=== PATIENT | female | born 1960 | race Caucasian/White ===

== ENCOUNTER → 2022-07-14 10:46 | Outpatient (BNVA) | payer BC, SELFPAY | PROVIDERS: PCP Family Medicine; Visit Provider Internal Medicine Rheumatology | DX: Z79.899 Other long term (current) drug therapy (principal); M19.90 Unspecified osteoarthritis, unspecified site; Z11.59 Encounter for screening for other viral diseases | CPT/HCPCS: 36415; 72100; 72202; 73130; 73630; 80076; 82565; 85025; 85651; 86140; 86480; 86704; 86803; 87340 ==

== ENCOUNTER 2022-12-11 16:02 | Outpatient (CLI) | payer BC, SELFPAY ==
[2022-12-11 17:30] LABS: Basophils % 0.6 %; Eosinophils # 0.1 10^3/uL (0.0-0.8); Eosinophils % 0.9 %; Hematocrit 37.4 % (36-47); Lymphocytes # 1.3 10^3/uL (0.8-4.8); Lymphocytes % 19.6 %; Mean Corpuscular HGB Conc 31.8 g/dL (30-55); Mean Corpuscular Hemoglobin 29.6 pg (27-33); Mean Platelet Volume 11.3 fL (7.4-10.4); Monocytes # 0.3 10^3/uL (0.2-0.9); Monocytes % 4.4 %; Neutrophils # 5.02 10^3/uL (1.8-7.7); Neutrophils % 74.2 %; Nucleated Red Blood Cells % 0 %; Platelet Count 187 10^3/cmm (157-399); Red Blood Count 4.02 10^6/uL (3.85-5.65); Red Cell Distribution Width 16.3 % (12.1-15.1); White Blood Count 6.77 10^3/uL (3.29-11.43)
[2022-12-11 17:42] LABS: Alanine Aminotransferase 211 U/L (0-33); Albumin Level 4.1 g/dL (3.5-5.2); Alkaline Phosphatase 258 U/L (35-105); Aspartate Amino Transferase 289 U/L (0-32); C Reactive Protein 4.7 mg/L (0.0-4.9); Globulin 2.7 g/dL (1.3-4.6); Total Bilirubin 0.3 mg/dL (0.15-1.2); Total Protein 6.8 g/dL (6.6-8.7)
== END 2022-12-11 16:03 | disposition home or self-care (01) ==
PROVIDERS: PCP Family Medicine; Visit Provider Internal Medicine Rheumatology
DX: M54.89 Other dorsalgia (principal); Z79.899 Other long term (current) drug therapy
CPT/HCPCS: 36415; 80076; 82565; 85025; 86140

== ENCOUNTER → 2022-12-17 12:39 | Outpatient (BNVA) | payer BC, SELFPAY | PROVIDERS: PCP Family Medicine; Visit Provider Internal Medicine Rheumatology | DX: Z79.899 Other long term (current) drug therapy (principal); M19.90 Unspecified osteoarthritis, unspecified site; M35.00 Sjogren syndrome, unspecified; M54.89 Other dorsalgia; Z71.85 Encounter for immunization safety counseling; M47.816 Spondylosis without myelopathy or radiculopathy, lumbar region | CPT/HCPCS: 36415; 80076; 83520; 85651; 86140; 86200; 86431 ==

== ENCOUNTER 2023-01-14 12:22 | Outpatient (CLI) | payer BC, SELFPAY ==
[2023-01-14 13:15] LABS: Basophils % 0.3 %; Eosinophils % 0.1 %; Lymphocytes % 13.6 %; Mean Corpuscular HGB Conc 31.4 g/dL (30-55); Mean Corpuscular Hemoglobin 30.3 pg (27-33); Mean Corpuscular Volume 96.3 fl (85-98); Mean Platelet Volume 11.2 fL (7.4-10.4); Monocytes # 0.4 10^3/uL (0.2-0.9); Monocytes % 6.1 %; Neutrophils # 5.71 10^3/uL (1.8-7.7); Neutrophils % 79.3 %; Nucleated Red Blood Cells % 0 %; Platelet Count 162 10^3/cmm (157-399); Red Blood Count 4.36 10^6/uL (3.85-5.65); Red Cell Distribution Width 15.2 % (12.1-15.1)
[2023-01-14 13:36] LABS: Alanine Aminotransferase 91 U/L (0-33); Albumin Level 4.3 g/dL (3.5-5.2); Alkaline Phosphatase 168 U/L (35-105); Aspartate Amino Transferase 26 U/L (0-32); C Reactive Protein 6.3 mg/L (0.0-4.9); Globulin 2.6 g/dL (1.3-4.6); Glomerular Filtration Rate 73.2 mL/min (90-130); Total Bilirubin 0.3 mg/dL (0.15-1.2); Total Protein 6.9 g/dL (6.6-8.7)
== END 2023-01-14 12:23 | disposition home or self-care (01) ==
PROVIDERS: PCP Family Medicine; Visit Provider Internal Medicine Rheumatology
DX: M19.90 Unspecified osteoarthritis, unspecified site (principal); M35.00 Sjogren syndrome, unspecified; Z79.899 Other long term (current) drug therapy
CPT/HCPCS: 80076; 82565; 85025; 86140

== ENCOUNTER 2023-01-28 07:32 | Outpatient (CLI) | payer BC, SELFPAY ==
--- NOTE | 2023-01-28 08:00 | US_ITS ---
WS: [id number] RIGHT UPPER QUADRANT ULTRASOUND HISTORY: R79.89 - Other specified abnormal findings of blood chemistry COMPARISON: None available. Liver: 14.2 cm in length. Liver is normal size but there is coarse echotexture throughout the liver. Liver is echogenic and poorly penetrated. No mass identified but the entire liver is not been well ev aluated. No bile duct dilatation. Portal Vein: Normal hepatopetal flow with monophasic waveform. Gallbladder: Prior cholecystectomy. CBD: 1.1 cm Pancreas: Completely obscured. Right kidney: 10.5 cm in length. Normal size and echogenicity. No hydronephrosis or mass. Aorta and IVC: Unremarkable abdominal aorta and IVC. No ascites. IMPRESSION: 1. Technically limited evaluation of the RIGHT upper quadrant. 2. Prior cholecystectomy. 3. Echogenic liver with poor penetration. Most consistent with hepatic fibrosis and steatosis. No mas s identified but the entire liver is not well visualized. 4. Common bile duct is mildly enlarged but this may be due to the postcholecystectomy state. No intra hepatic duct dilatation.
== END 2023-01-28 07:33 | disposition home or self-care (01) ==
PROVIDERS: PCP Family Medicine; Visit Provider Internal Medicine Rheumatology
DX: R79.89 Other specified abnormal findings of blood chemistry (principal); Z90.49 Acquired absence of other specified parts of digestive tract
CPT/HCPCS: 76705

== ENCOUNTER 2023-03-03 11:30 | Outpatient (CLI) | payer BC, SELFPAY ==
[2023-03-03 13:06] LABS: Alanine Aminotransferase 28 U/L (0-33); Alkaline Phosphatase 113 U/L (35-105); Aspartate Amino Transferase 25 U/L (0-32); Globulin 2.5 g/dL (1.3-4.6); Total Bilirubin 0.6 mg/dL (0.15-1.2); Total Protein 6.5 g/dL (6.6-8.7)
== END 2023-03-03 11:31 | disposition home or self-care (01) ==
LOC: LAB 11:31
PROVIDERS: PCP Family Medicine; Visit Provider Internal Medicine Rheumatology
DX: Z79.899 Other long term (current) drug therapy (principal); R79.89 Other specified abnormal findings of blood chemistry
CPT/HCPCS: 36415; 80076

== ENCOUNTER 2023-03-17 15:52 | Outpatient (CLI) | payer BC, SELFPAY ==
[2023-03-17 16:08] LABS: Basophils % 0.7 %; Eosinophils # 0.2 10^3/uL (0.0-0.8); Hematocrit 42.2 % (36-47); Lymphocytes % 37.1 %; Mean Corpuscular HGB Conc 31.8 g/dL (30-55); Mean Corpuscular Hemoglobin 30.1 pg (27-33); Mean Corpuscular Volume 94.8 fl (85-98); Mean Platelet Volume 10.9 fL (7.4-10.4); Monocytes # 0.6 10^3/uL (0.2-0.9); Monocytes % 11.4 %; Neutrophils # 2.53 10^3/uL (1.8-7.7); Neutrophils % 47.4 %; Nucleated Red Blood Cells % 0 %; Platelet Count 185 10^3/cmm (157-399); Red Blood Count 4.45 10^6/uL (3.85-5.65); Red Cell Distribution Width 13.2 % (12.1-15.1); White Blood Count 5.34 10^3/uL (3.29-11.43)
[2023-03-17 16:25] LABS: C Reactive Protein 5.6 mg/L (0.0-4.9); Glomerular Filtration Rate 73.2 mL/min (90-130)
== END 2023-03-17 15:53 | disposition home or self-care (01) ==
LOC: LAB 15:55
PROVIDERS: PCP Family Medicine; Visit Provider Internal Medicine Rheumatology
DX: Z79.899 Other long term (current) drug therapy (principal); M19.90 Unspecified osteoarthritis, unspecified site; M35.00 Sjogren syndrome, unspecified
CPT/HCPCS: 36415; 82565; 85025; 86140

== ENCOUNTER 2023-06-09 14:51 | Outpatient (CLI) | payer BC, SELFPAY ==
[2023-06-09 15:20] LABS: Basophils # 0.1 10^3/uL (0.0-0.1); Basophils % 0.8 %; Eosinophils % 0.3 %; Hematocrit 38.6 % (36-47); Lymphocytes # 1.4 10^3/uL (0.8-4.8); Lymphocytes % 22.9 %; Mean Corpuscular HGB Conc 32.1 g/dL (30-55); Mean Corpuscular Hemoglobin 29.2 pg (27-33); Mean Platelet Volume 11.8 fL (7.4-10.4); Monocytes # 0.3 10^3/uL (0.2-0.9); Monocytes % 4.5 %; Neutrophils # 4.29 10^3/uL (1.8-7.7); Neutrophils % 71.2 %; Nucleated Red Blood Cells % 0 %; Platelet Count 164 10^3/cmm (157-399); Red Blood Count 4.24 10^6/uL (3.85-5.65); Red Cell Distribution Width 13.8 % (12.1-15.1); White Blood Count 6.03 10^3/uL (3.29-11.43)
[2023-06-09 15:45] LABS: Alanine Aminotransferase 27 U/L (0-33); Alkaline Phosphatase 150 U/L (35-105); Aspartate Amino Transferase 30 U/L (0-32); C Reactive Protein 3.6 mg/L (0.0-4.9); Globulin 2.7 g/dL (1.3-4.6); Total Bilirubin 0.3 mg/dL (0.15-1.2); Total Protein 6.7 g/dL (6.6-8.7)
== END 2023-06-09 14:52 | disposition home or self-care (01) ==
LOC: LAB 14:55
PROVIDERS: PCP Family Medicine; Visit Provider Internal Medicine Rheumatology
DX: Z79.899 Other long term (current) drug therapy (principal); M54.89 Other dorsalgia; M19.90 Unspecified osteoarthritis, unspecified site
CPT/HCPCS: 36415; 80076; 82565; 85025; 86140

== ENCOUNTER 2023-11-22 15:57 | Outpatient (CLI) | payer BC, SELFPAY ==
[2023-11-22 16:23] LABS: Basophils # 0.1 10^3/uL (0.0-0.1); Basophils % 0.8 %; Eosinophils # 0.1 10^3/uL (0.0-0.8); Eosinophils % 1.4 %; Hematocrit 39.2 % (36-47); Lymphocytes % 27.8 %; Mean Corpuscular HGB Conc 31.4 g/dL (30-55); Mean Corpuscular Hemoglobin 28.5 pg (27-33); Mean Corpuscular Volume 90.7 fl (85-98); Mean Platelet Volume 11.7 fL (7.4-10.4); Monocytes # 0.5 10^3/uL (0.2-0.9); Monocytes % 6.1 %; Neutrophils # 4.69 10^3/uL (1.8-7.7); Neutrophils % 63.8 %; Nucleated Red Blood Cells % 0 %; Platelet Count 205 10^3/cmm (157-399); Red Blood Count 4.32 10^6/uL (3.85-5.65); Red Cell Distribution Width 13.6 % (12.1-15.1); White Blood Count 7.35 10^3/uL (3.29-11.43)
[2023-11-22 16:52] LABS: Alanine Aminotransferase 18 U/L (0-33); Albumin Level 4.4 g/dL (3.5-5.2); Alkaline Phosphatase 139 U/L (35-105); Aspartate Amino Transferase 19 U/L (0-32); Globulin 2.7 g/dL (1.3-4.6); Glomerular Filtration Rate 85.1 mL/min (90-130); Total Bilirubin 0.2 mg/dL (0.15-1.2); Total Protein 7.1 g/dL (6.6-8.7)
[2023-11-22 17:09] LABS: Erythrocyte Sedimentation Rate 20 mm/hr (0-15)
[2023-11-24 21:14] LABS: HLA-B27 NEGATIVE (NEGATIVE)
== END 2023-11-22 15:58 | disposition home or self-care (01) ==
LOC: LAB 15:59
PROVIDERS: PCP Family Medicine; Visit Provider Internal Medicine Rheumatology
DX: Z79.899 Other long term (current) drug therapy (principal); M06.041 Rheumatoid arthritis without rheumatoid factor, right hand; M06.042 Rheumatoid arthritis without rheumatoid factor, left hand
CPT/HCPCS: 36415; 80076; 82565; 83520; 85025; 85651; 86140; 86812

== ENCOUNTER 2024-03-20 14:32 | Outpatient (CLI) | payer BC, SELFPAY ==
[2024-03-20 15:25] LABS: Basophils # 0.1 10^3/uL (0.0-0.1); Basophils % 1.1 %; Eosinophils # 0.2 10^3/uL (0.0-0.8); Eosinophils % 2.6 %; Hematocrit 36.7 % (36-47); Lymphocytes # 2.1 10^3/uL (0.8-4.8); Lymphocytes % 36.3 %; Mean Corpuscular HGB Conc 30.5 g/dL (30-55); Mean Corpuscular Hemoglobin 28.1 pg (27-33); Mean Corpuscular Volume 92.2 fl (85-98); Mean Platelet Volume 10.6 fL (7.4-10.4); Monocytes # 0.6 10^3/uL (0.2-0.9); Monocytes % 10.7 %; Neutrophils # 2.74 10^3/uL (1.8-7.7); Neutrophils % 48.2 %; Nucleated Red Blood Cells % 0 %; Platelet Count 186 10^3/cmm (157-399); Red Blood Count 3.98 10^6/uL (3.85-5.65); Red Cell Distribution Width 15.7 % (12.1-15.1); White Blood Count 5.68 10^3/uL (3.29-11.43)
[2024-03-20 15:42] LABS: Alanine Aminotransferase 14 U/L (0-33); Albumin Level 3.8 g/dL (3.5-5.2); Alkaline Phosphatase 116 U/L (35-105); Aspartate Amino Transferase 22 U/L (0-32); C Reactive Protein 3.1 mg/L (0.0-4.9); Globulin 2.8 g/dL (1.3-4.6); Glomerular Filtration Rate 101.6 mL/min (90-130); Total Bilirubin 0.3 mg/dL (0.15-1.2); Total Protein 6.6 g/dL (6.6-8.7)
[2024-03-20 16:23] LABS: Erythrocyte Sedimentation Rate 25 mm/hr (0-15)
== END 2024-03-20 14:33 | disposition home or self-care (01) ==
LOC: LAB 14:35
PROVIDERS: PCP Family Medicine; Visit Provider Internal Medicine Rheumatology
DX: Z79.899 Other long term (current) drug therapy (principal); M06.041 Rheumatoid arthritis without rheumatoid factor, right hand; M06.042 Rheumatoid arthritis without rheumatoid factor, left hand
CPT/HCPCS: 36415; 80076; 82565; 85025; 85651; 86140

== ENCOUNTER 2024-06-15 16:07 | Outpatient (CLI) | payer BC, SELFPAY ==
[2024-06-15 16:57] LABS: Basophils # 0.1 10^3/uL (0.0-0.1); Eosinophils # 0.1 10^3/uL (0.0-0.8); Eosinophils % 1.7 %; Hematocrit 40.5 % (36-47); Lymphocytes # 2.8 10^3/uL (0.8-4.8); Lymphocytes % 47.8 %; Mean Corpuscular HGB Conc 31.1 g/dL (30-55); Mean Corpuscular Volume 93.1 fl (85-98); Mean Platelet Volume 10.9 fL (7.4-10.4); Monocytes # 0.7 10^3/uL (0.2-0.9); Monocytes % 11.9 %; Neutrophils # 2.16 10^3/uL (1.8-7.7); Neutrophils % 37.3 %; Nucleated Red Blood Cells % 0 %; Platelet Count 163 10^3/cmm (157-399); Red Blood Count 4.35 10^6/uL (3.85-5.65); Red Cell Distribution Width 13.8 % (12.1-15.1)
[2024-06-15 17:00] LABS: Erythrocyte Sedimentation Rate 16 mm/hr (0-15)
[2024-06-15 17:39] LABS: Alanine Aminotransferase 19 U/L (0-33); Alkaline Phosphatase 96 U/L (35-105); Aspartate Amino Transferase 23 U/L (0-32); C Reactive Protein 4.3 mg/L (0.0-4.9); Globulin 2.4 g/dL (1.3-4.6); Glomerular Filtration Rate 101.6 mL/min (90-130); Total Bilirubin 0.2 mg/dL (0.15-1.2); Total Protein 6.4 g/dL (6.6-8.7)
== END 2024-06-15 16:08 | disposition home or self-care (01) ==
LOC: LAB 16:10
PROVIDERS: PCP Family Medicine; Visit Provider Internal Medicine Rheumatology
DX: Z79.899 Other long term (current) drug therapy (principal); M06.041 Rheumatoid arthritis without rheumatoid factor, right hand; M06.042 Rheumatoid arthritis without rheumatoid factor, left hand
CPT/HCPCS: 36415; 80076; 82565; 85025; 85651; 86140

== ENCOUNTER 2024-07-12 12:40 | Outpatient (CLI) | payer BC, SELFPAY ==
--- NOTE | 2024-07-12 13:00 | MR_ITS ---
WS: [id number] MRI CERVICAL SPINE NONCONTRAST HISTORY: M54.12 - Radiculopathy, cervical region COMPARISON: None available. Technique: Multiplanar, multisequence noncontrast imaging of the cervical spine. Straightening of the normal cervical lordosis. Slight retrolisthesis of C5 and C6. The spaces are mildly narrowed and desiccated. Signal within the cervical cord is normal. Visualized posterior fossa is unremarkable. Craniocervical junction, C1 and C2 relationship, odontoid process and soft tissues are normal. C2-C3: Normal. C3-C4: Mild osteophytic ridging. Bilateral foraminal osteophytes causing mild foraminal stenosis. C4-C5: Osteophytic ridging, greatest on the RIGHT. Moderate RIGHT and minimal LEFT foraminal stenosis predominantly due to osteophytes. C5-C6: Osteophytic ridging with mild annular disc bulging. Effacement of ventral CSF. Moderate central with moderate to severe bilateral foraminal stenosis and facet arthropathy. C6-C7: Diffuse osteophytic ridging with mild disc bulging. Mild facet arthritis. Moderate central and bilateral foraminal stenosis. C7-T1: Normal. Additional degenerative disc disease and osteophytes at T2-3 and T3-4 without stenosis. MR/MR cervical spin wo con* [id number] IMPRESSION: 1. Straightening of the normal cervical lordosis with degenerative disc diseas e most significant at C5-6. 2. Multilevel areas of stenosis predominantly due to osteophytes with a lesser component of disc disease and facet arthritis. 3. C5-6: Moderate central stenosis with moderate to severe bilateral foraminal stenosis. 4. C6-7: Moderate central and bilateral foraminal stenosis. 5. C4-5: Moderate RIGHT and mild LEFT foraminal stenosis. 6. Mild bilateral foraminal stenosis at C3-4.
--- NOTE | 2024-07-12 13:45 | MR_ITS ---
WS: [id number] MRI LUMBAR SPINE NONCONTRAST HISTORY: M54.12 - Radiculopathy, cervical region COMPARISON: None available. TECHNIQUE: Sagittal and axial multisequence imaging is submitted. Moderate LEFT scoliosis lumbar spine. Degenerative disc space narrowing and chronic endplate changes throughout the lumbar spine. Osteophytic ridging at several levels. Disc spaces are narrowed and desiccated. No acute fracture. Conus terminates normally at L1-2 disc level. L1-L2: 2 mm retrolisthesis of L1. Diffuse annular disc bulging encroaching upon the ventral thecal sac and subarticular recesses. Bilateral facet arthropathy. Moderate central, subarticular recess and foraminal stenosis. L2-L3: Diffuse annular disc bulging with osteophytic ridging and facet arthritis. Mild subarticular recess encroachment and mild bilateral foraminal stenosis. L3-L4: Mild disc bulging with ligamentum flavum and facet arthritis. Mild subarticular recess encroachment, RIGHT greater than LEFT. Mild foraminal stenosis. L4-L5: Annular disc bulging encroaching upon the ventral thecal sac and subarticular recesses. Severe ligamentum flavum and facet arthritis. Moderate LEFT and mild RIGHT foraminal stenosis. L5-S1: Mild disc bulging. Disc contacts the S1 nerve roots, LEFT greater than RIGHT. Mild LEFT foraminal stenosis. Paravertebral soft tissues are negative. MR/MR lumbar spine wo con* [id number] IMPRESSION: 1. LEFT scoliosis lumbar spine with advanced degenerative changes in the lumba r spine. 2. No acute fracture. 3. L1-2: Moderate central, subarticular recess and foraminal stenosis. 4. L2-3: Mild subarticular recess and foraminal stenosis. 5. L3-4: Mild subarticular recess encroachment, RIGHT greater than LEFT. 6. L4-5: Severe ligamentum flavum and facet arthritis. Moderate LEFT and mild RIGHT foraminal stenosis. 7. L5-S1: Mild LEFT foraminal stenosis.
== END 2024-07-12 12:41 | disposition home or self-care (01) ==
PROVIDERS: PCP Family Medicine; Visit Provider Internal Medicine Rheumatology
DX: M54.12 Radiculopathy, cervical region (principal); M47.816 Spondylosis without myelopathy or radiculopathy, lumbar region; M50.322 Other cervical disc degeneration at C5-C6 level; M48.02 Spinal stenosis, cervical region; M47.892 Other spondylosis, cervical region; R93.7 Abnormal findings on diagnostic imaging of other parts of musculoskeletal system; M25.78 Osteophyte, vertebrae; M50.323 Other cervical disc degeneration at C6-C7 level; M51.34 Other intervertebral disc degeneration, thoracic region; M41.86 Other forms of scoliosis, lumbar region; M51.369 Other intervertebral disc degeneration, lumbar region without mention of lumbar back pain or lower extremity pain; M48.061 Spinal stenosis, lumbar region without neurogenic claudication; M24.28 Disorder of ligament, vertebrae; M48.07 Spinal stenosis, lumbosacral region; M51.379 Other intervertebral disc degeneration, lumbosacral region without mention of lumbar back pain or lower extremity pain; M47.896 Other spondylosis, lumbar region
CPT/HCPCS: 72141; 72148

== ENCOUNTER 2024-10-05 15:31 | Outpatient (CLI) | payer BC, SELFPAY ==
[2024-10-05 15:57] LABS: Hematocrit 40.0 % (36-47); Hemoglobin 12.60 g/dL (11.27-16.99); Mean Corpuscular HGB Conc 31.5 g/dL (30-55); Mean Corpuscular Hemoglobin 29.9 pg (27-33); Mean Corpuscular Volume 95.0 fl (85-98); Nucleated Red Blood Cells % 0 %; Platelet Count 171 10^3/cmm (157-399); Red Blood Count 4.21 10^6/uL (3.85-5.65); White Blood Count 7.99 10^3/uL (3.29-11.43)
[2024-10-05 17:19] LABS: Alanine Aminotransferase 17 U/L (0-33); Albumin Level 4.1 g/dL (3.5-5.2); Alkaline Phosphatase 112 U/L (35-105); Aspartate Amino Transferase 17 U/L (0-32); Globulin 2.8 g/dL (1.3-4.6); Total Protein 6.9 g/dL (6.6-8.7)
== END 2024-10-05 15:32 | disposition home or self-care (01) ==
PROVIDERS: PCP Family Medicine; Visit Provider Internal Medicine Rheumatology
DX: Z79.899 Other long term (current) drug therapy (principal)
CPT/HCPCS: 36415; 80076; 82565; 85025; 85651; 86140

== ENCOUNTER → 2024-10-11 14:33 | Outpatient (BNVA) | payer BC, SELFPAY | PROVIDERS: PCP Family Medicine; Visit Provider Internal Medicine Rheumatology | DX: Z79.899 Other long term (current) drug therapy (principal) | CPT/HCPCS: 36415; 86480; 86704; 86803; 87340 ==

== ENCOUNTER 2024-11-02 14:05 | Oncology outpatient (recurring) (ONCR) | payer BC, SELFPAY ==
--- NOTE | 2024-10-30 14:15 | N.ONRAD NP_ITS ---
Radiation Oncology New Patient Visit Patient: Elsi Wiggins MR#: [id number] : 1960 Age: 64 Sex: Female Dictated by: Dr. Chuck Li DO/ROBBIN/HARDIK Date of Service: 10/30/2024 Referring Physician(s) : Diagnosis: M06.042 - rheumatoid arthritis without rheumatoid factor, left hand, Diagnosed 10/30/2024 (active), M06.041 - rheumatoid arthritis without rheumatoid factor, right hand, Diagnosed 10/30/2024 (active) and M35.00 - sjogren syndrome, unspecified, Diagnosed 10/30/2024 (active). SJOGREN SYNDROM X 5 YEARS AND RHEUMATOID ARTHRITIS X 2.5 YRS-SERONEGATIVE, SWELLING BL 2ND/3RD MCP JOINTS L>R, TREATING WITH ARAVA, PREDNISONE, HYDROXYCHOLOROQUINE, AND PENDING APPROVAL OF RITUXIMAB STAGE: N/A ICD-10: M06.041, M06.042, M35.00 Radiotherapy to date: Summary > No prior radiation therapy. Chief Complaint / History of Present Illness: Patient here for consultation regarding pain from rheumatoid arthritis and Sjogren Syndrome. This is a pleasant 62-year-old obese female with Sjogren's syndrome x 5 years and seronegative rheumatoid arthritis for 2-1/2 years. She is presently being treated with ARAVA, PREDNISONE, HYDROXYCHOLOROQUINE, AND PENDING APPROVAL OF RITUXIMAB Current Medications: celecoxib (Celebrex) 200 mg PO BID 30 days diclofenac sodium 1% (Arthritis Pain (diclofenac)) 2 grams topical QID estradiol (Yuvafem) 10 mcg vaginal DAILY ferrous sulfate 325 mg PO DAILY gabapentin ER (Gralise) take 3 with evening meal orally; hydroxychloroquine 200 mg PO BID leflunomide 20 mg PO DAILY levothyroxine 150 mcg PO DAILY liothyronine 5 mcg PO DAILY pantoprazole take in AM 30 minutes before meal PO daily; pilocarpine HCl TAKE 1 TABLET BY MOUTH THREE TIMES A DAY prednisone 40 mg (2 x 20 mg) PO DAILY PRN prednisone 10 mg PO DAILY rituximab IV Allergies: Penicillins Allergy (Intermediate, Verified 06/21/24 11:53) Unknown codeine Allergy (Verified 06/21/24 11:53) Unknown Sulfa (Sulfonamide Antibiotics) Allergy (Verified 06/21/24 11:53) Unknown tofacitinib (From Xeljanz) Adverse Reaction (Intermediate, Verified 08/07/24 17:42) ADR-Diarrhea Medical History: No history of collagen vascular disease. No previous radiation therapy. Seronegative rheumatoid arthritis of both hands Degenerative joint disease (DJD) of lumbar spine Immunization counseling High risk medication use Inflammatory back pain Inflammatory arthritis Osteoarthritis Hypothyroidism, acquired, autoimmune H/O Sjogren's disease Hypothyroid Surgical History: NC Family History: + RA Other Cancer Congestive heart failure (CHF) Hypertension Rheumatoid arthritis Denies family history of Diabetes Family history of premature coronary artery disease Lung disease Stroke Social History: Smoking and tobacco/nicotine status: never used tobacco/nicotine Alcohol intake: never Current Complaints / Review of Systems: . Vital Signs: Performed on 10/30/2024 1:23 PM BMI - 43.577 kg/m2 (high), Height - 63 in, Weight - 246 lbs, Temperature - 96.6 f, Pulse - 67 /min, Respiration - 19 /min, O2 Sat - 96 %, Pain - 8, Fatigue - 0 and BP - 148/ 83 mm(hg)(high/). Physical Exam: AAOX3. Head is normocephalic without masses Neck no cervical adenopathy Oral cavity exam show no mucosal lesions. Lungs clear to auscultation. No intercostal retraction Abdomen obese nontender with no hepatosplenomegaly. Extremities soft tissue swelling and tenderness to car across MCPs and PIPs of both hands left greater than the right and more in the 2nd and 3rd MCPs. Patient uses a single post cane. Vertebral exam nonreproducible tenderness in the lumbar area. Performance Status: Pathology: Primary, m06.042 - rheumatoid arthritis without rheumatoid factor, left hand, Diagnosed 10/30/2024 (active) , Primary, m06.041 - rheumatoid arthritis without rheumatoid factor, right hand, Diagnosed 10/30/2024 (active) and Primary, m35.00 - sjogren syndrome, unspecified, Diagnosed 10/30/2024 (active) . Lab: Imaging: See HPI Impression: M06.042 - rheumatoid arthritis without rheumatoid factor, left hand, Diagnosed 10/30/2024 (active), M06.041 - rheumatoid arthritis without rheumatoid factor, right hand, Diagnosed 10/30/2024 (active) and M35.00 - sjogren syndrome, unspecified, Diagnosed 10/30/2024 (active). SJOGREN SYNDROM X 5 YEARS AND RHEUMATOID ARTHRITIS X 2.5 YRS-SERONEGATIVE, SWELLING BL 2ND/3RD MCP JOINTS L>R, TREATING WITH ARAVA, PREDNISONE, HYDROXYCHOLOROQUINE, AND PENDING APPROVAL OF RITUXIMAB STAGE: N/A ICD-10: M06.041, M06.042, M35.00 Plan: Options were discussed with the patient and . [place] direct double-blind studies. We have noted some improvement by treating patients with low-dose radiation to their hands or directed joints. If approved by insurance we would recommend a total of 300 cGy in 5 fractions of 60 cGy per treatment to both hands. Patient advised to not wear her wedding ring during treatment. Signed by: 10/30/2024 2:13:17 PM <<Signature on File>> Time spent with patient/: 45 minutes for record review, patient examination, and record preparation. CPT Code: CPT Code:
== END 2024-11-02 23:59 | disposition home or self-care (01) ==
PROVIDERS: PCP Family Medicine; Visit Provider Internal Medicine Rheumatology
DX: M06.042 Rheumatoid arthritis without rheumatoid factor, left hand (principal); M06.041 Rheumatoid arthritis without rheumatoid factor, right hand; M35.00 Sjogren syndrome, unspecified
CPT/HCPCS: 77285

== ENCOUNTER 2024-11-28 15:05 | Outpatient (RCR) | payer BC, SELFPAY | END 2024-12-03 23:59 | disposition home or self-care (01) | LOC: SOT 15:05 | PROVIDERS: PCP Family Medicine; Visit Provider Internal Medicine Rheumatology | DX: M21.941 Unspecified acquired deformity of hand, right hand (principal); M21.942 Unspecified acquired deformity of hand, left hand; M06.9 Rheumatoid arthritis, unspecified | CPT/HCPCS: 97167 ==

== ENCOUNTER → 2024-11-30 14:43 | Outpatient (BNVA) | payer BC, SELFPAY | PROVIDERS: PCP Family Medicine; Visit Provider Orthopaedic Surgery | DX: M47.816 Spondylosis without myelopathy or radiculopathy, lumbar region (principal); M48.061 Spinal stenosis, lumbar region without neurogenic claudication | CPT/HCPCS: 72110; 73523 ==

== ENCOUNTER 2024-12-11 14:07 | Oncology outpatient (recurring) (ONCR) | payer BC, SELFPAY ==
--- NOTE | 2024-12-11 16:48 | ONCRAD EPV_ITS ---
Radiation Oncology Established Patient Visit Patient: Elsi Wiggins [id number] : 1960 Age: 64 Sex: Female Dictated by: Dr. Ravi Bautista Date of Service: 12/11/2024 Referring Physician(s) : Dr. Hickman Diagnosis: M06.042 - Rheumatoid arthritis without rheumatoid factor, left hand, Diagnosed 10/30/2024 (Active) M06.041 - Rheumatoid arthritis without rheumatoid factor, right hand, Diagnosed 10/30/2024 (Active) M35.00 - Sjogren syndrome, unspecified, Diagnosed 10/30/2024 (Active) Radiotherapy to Date: Course: Bilateral Hands, Treatment Site: [id number], Ref. ID: Lt Hand 3Gy, Energy: 6X, Dose/Fx (cGy): 50, #Fx: 6 / 6, Dose Correction (cGy): 0, Total Dose Delivered (cGy): 300, Start Date: 11/06/2024, End Date: 11/13/2024, Elapsed Days: 7 Course: Bilateral Hands, Treatment Site: [id number], Ref. ID: Rt Hand 3Gy, Energy: 6X, Dose/Fx (cGy): 50, #Fx: 6 / 6, Dose Correction (cGy): 0, Total Dose Delivered (cGy): 300, Start Date: 11/06/2024, End Date: 11/13/2024, Elapsed Days: 7 Current History: She had no improvement with treatment. Hand pain is stable and up to 9 on 10 scale. She uses Celebrex primarily. She has not responded to biologic immunotherapy in the past. She is now waiting for approval of another infusion treatment. Current Medications: celecoxib (Celebrex) 200 mg PO BID 30 days diclofenac sodium 1% (Arthritis Pain (diclofenac)) 2 grams topical QID estradiol (Yuvafem) 10 mcg vaginal DAILY ferrous sulfate 325 mg PO DAILY gabapentin ER (Gralise) take 3 with evening meal orally; hydroxychloroquine 200 mg PO BID leflunomide 20 mg PO DAILY levothyroxine 150 mcg PO DAILY liothyronine 5 mcg PO DAILY pantoprazole take in AM 30 minutes before meal PO daily; pilocarpine HCl TAKE 1 TABLET BY MOUTH THREE TIMES A DAY prednisone 40 mg (2 x 20 mg) PO DAILY PRN prednisone 10 mg PO DAILY rituximab IV Allergies: Penicillins Allergy (Intermediate, Verified 06/21/24 11:53) Unknown codeine Allergy (Verified 06/21/24 11:53) Unknown Sulfa (Sulfonamide Antibiotics) Allergy (Verified 06/21/24 11:53) Unknown tofacitinib (From Xeljanz) Adverse Reaction (Intermediate, Verified 08/07/24 17:42) ADR-Diarrhea Current Complaints / Review of Systems: . Vital Signs: Performed on 12/11/2024 2:30 PM BMI - 43.684 kg/m2 (high), Height - 63 in, Weight - 246.6 lbs, Temperature - 95.7 f, Pulse - 79 /min, Respiration - 19 /min, O2 Sat - 97 %, Pain - 9, Fatigue - 0 and BP - 173/ 99 mm(hg)(high). Physical Exam: General: Alert and oriented x 3. No acute distress. Rheumatoid hand changes. Performance Status: ECOG PS 1 ??? 2. Lab: None pending. Pathology: Primary, m06.042 - rheumatoid arthritis without rheumatoid factor, left hand, Diagnosed 10/30/2024 (active) , Primary, m06.041 - rheumatoid arthritis without rheumatoid factor, right hand, Diagnosed 10/30/2024 (active) and Primary, m35.00 - sjogren syndrome, unspecified, Diagnosed 10/30/2024 (active) . Imaging: None Impression: Stable arthritic pain. No improvement with radiation. If she has a delayed response and later relapses with pain, retreatment could be considered at that time. Discussed with patient. No further follow-up is scheduled here at this time. Signed by: 12/11/2024 4:47:34 PM <<Signature on File>> Time spent with patient: CPT Code: CPT Code:
== END 2025-01-02 23:59 | disposition home or self-care (01) ==
PROVIDERS: PCP Family Medicine; Visit Provider Radiology Radiation Oncology
DX: Z53.9 Procedure and treatment not carried out, unspecified reason (principal)

== ENCOUNTER 2025-02-01 08:33 | Oncology outpatient (recurring) (ONCR) | payer BC, SELFPAY ==
--- NOTE | 2025-01-08 16:10 | PC.NURSE ---
Pt did not get treated today, when asking the pt the RHEO questions, she stated that she was on antibiotics and had just finished 3 days prior. She was on this medications for pressure ulcers as well. I reached out to Dr. Haskins's nurse. Dr. Haskins stated that she should hold off until about 2 weeks and needs to be healed up. Pt was informed of this and rescheduled.
[2025-02-01] VITALS (9 sets, daily range): BP systolic 133–164; BP diastolic 70–97; PULSE 66–74; RESP 16–18; TEMP 36.1–36.4; O2SAT 90–95
[2025-02-01] MEDS: diphenhydrAMINE 50 mg/mL SDV 1mL 25 MG IVP (09:12)
[2025-02-01] MEDS: methylPREDNISolone sod succ 40 mg/mL INJ IVP (09:12)
== END 2025-02-02 23:59 | disposition home or self-care (01) ==
PROVIDERS: PCP Family Medicine; Visit Provider Internal Medicine Rheumatology
DX: M06.041 Rheumatoid arthritis without rheumatoid factor, right hand; M06.042 Rheumatoid arthritis without rheumatoid factor, left hand; Z79.899 Other long term (current) drug therapy; Z53.9 Procedure and treatment not carried out, unspecified reason
CPT/HCPCS: 96375; 96413; 96415; J1200; J2919; J7040; J9312; J9999

== ENCOUNTER 2025-02-14 09:33 | Oncology outpatient (recurring) (ONCR) | payer BC, SELFPAY ==
[2025-02-14] MEDS: diphenhydrAMINE 50 mg/mL SDV 1mL 25 MG IVP (10:12)
[2025-02-14 10:14] LABS: Hematocrit 37.0 % (36-47); Hemoglobin 11.70 g/dL (11.27-16.99); Mean Corpuscular HGB Conc 31.6 g/dL (30-55); Mean Corpuscular Hemoglobin 29.7 pg (27-33); Mean Corpuscular Volume 93.9 fl (85-98); Nucleated Red Blood Cells % 0 %; Platelet Count 150 10^3/cmm (157-399); Red Blood Count 3.94 10^6/uL (3.85-5.65); White Blood Count 8.61 10^3/uL (3.29-11.43)
[2025-02-14] MEDS: methylPREDNISolone sod succ 40 mg/mL INJ IVP (10:15)
[2025-02-14 10:31] LABS: Alanine Aminotransferase 38 U/L (0-33); Albumin Level 4.3 g/dL (3.5-5.2); Alkaline Phosphatase 143 U/L (35-105); Aspartate Amino Transferase 29 U/L (0-32); Globulin 2.4 g/dL (1.3-4.6); Total Protein 6.7 g/dL (6.6-8.7)
[2025-02-14 10:41] VITALS: BP 149/78; PULSE 62; RESP 16; TEMP 36.6; O2SAT 97
[2025-02-14 11:12] VITALS: BP 144/65; PULSE 56; RESP 16; TEMP 36.5; O2SAT 93
[2025-02-14 11:42] VITALS: BP 148/69; PULSE 62; RESP 16; TEMP 36.6; O2SAT 94
[2025-02-14 12:15] VITALS: BP 146/64; PULSE 65; RESP 16; TEMP 36.2; O2SAT 96
[2025-02-14 13:52] VITALS: BP 160/76; PULSE 64; RESP 17; TEMP 36.2; O2SAT 95
== END 2025-03-04 23:59 | disposition home or self-care (01) ==
LOC: ONCMED 09:34
PROVIDERS: PCP Family Medicine; Visit Provider Internal Medicine Rheumatology
DX: M06.041 Rheumatoid arthritis without rheumatoid factor, right hand (principal); M06.042 Rheumatoid arthritis without rheumatoid factor, left hand; Z79.899 Other long term (current) drug therapy
CPT/HCPCS: 80076; 82565; 85025; 85651; 96375; 96413; 96415; J1200; J2919; J7040; J7050; J9312; J9999

== ENCOUNTER 2025-03-06 13:46 | Outpatient (CLI) | payer BC, SELFPAY ==
[2025-03-06 14:19] LABS: Hematocrit 39.3 % (36-47); Hemoglobin 12.30 g/dL (11.27-16.99); Mean Corpuscular HGB Conc 31.3 g/dL (30-55); Mean Corpuscular Hemoglobin 29.9 pg (27-33); Mean Corpuscular Volume 95.4 fl (85-98); Nucleated Red Blood Cells % 0 %; Platelet Count 178 10^3/cmm (157-399); Red Blood Count 4.12 10^6/uL (3.85-5.65); White Blood Count 8.33 10^3/uL (3.29-11.43)
[2025-03-06 14:56] LABS: Alanine Aminotransferase 42 U/L (0-33); Albumin Level 4.3 g/dL (3.5-5.2); Alkaline Phosphatase 129 U/L (35-105); Aspartate Amino Transferase 36 U/L (0-32); Globulin 2.9 g/dL (1.3-4.6); Total Protein 7.2 g/dL (6.6-8.7)
== END 2025-03-06 13:47 | disposition home or self-care (01) ==
LOC: LAB 13:47
PROVIDERS: PCP Family Medicine; Visit Provider Internal Medicine Rheumatology
DX: Z79.899 Other long term (current) drug therapy (principal); Z71.85 Encounter for immunization safety counseling; M06.041 Rheumatoid arthritis without rheumatoid factor, right hand; M06.042 Rheumatoid arthritis without rheumatoid factor, left hand; M35.00 Sjogren syndrome, unspecified
CPT/HCPCS: 36415; 80076; 82565; 85025; 85651; 86140; 86480